=== PATIENT | female | born 2000 | race African-American/Black ===

== ENCOUNTER 2022-10-06 01:37 | Emergency (ER) | payer SELFPAY | END 2022-10-06 03:18 | disposition home or self-care (01) | LOC: ERS 01:37 | DX: M94.0 Chondrocostal junction syndrome [Tietze] (principal) | CPT/HCPCS: 71045 ==

== ENCOUNTER 2023-01-25 14:04 | Emergency (ER) | payer SELFPAY | END 2023-01-25 14:50 | LOC: ERS 14:04 | DX: Z02.89 Encounter for other administrative examinations (principal) | CPT/HCPCS: 99283 ==